=== PATIENT | male | born 2000 ===

== ENCOUNTER → 2020-07-05 | Emergency (ER) | payer SELFPAY ==
[~2020-07-05] VITALS: Ht 177.8 cm; Wt 90.9 kg
[2020-07-05 18:35] VITALS: BP 130/81; PULSE 79; TEMP 97.5
== END ==
LOC: COL.ER 18:33
DX: S60.511A Abrasion of right hand, initial encounter (principal); S60.512A Abrasion of left hand, initial encounter; V48.5XXA Car driver injured in noncollision transport accident in traffic accident, initial encounter; W22.11XA Striking against or struck by driver side automobile airbag, initial encounter